=== PATIENT | male | born 1945 | race Caucasian/White ===

== ENCOUNTER 2016-09-28 20:18 | Inpatient (IN) | payer OTHER, MEDICARE ==
[~2016-09-28] VITALS: Ht 170.2 cm; Wt 74.8 kg
--- NOTE | ~2016-09-28 | EKG ---
[address] [place] [address] ELECTROCARDIOGRAM REPORT Name: RADHA RITCHIE Room #: 450-P ADM IN M.R.#: [id number] Admission: 09/28/16 Attend Phys: Marilu Kemp MD Discharge: Date of : 41 Report #: [id number] THIS REPORT FOR: //name// [facility] ED Test Date: 2016-09-28 Test Time: 20:30:13 Pat Name: RADHA RITCHIE Department: Room: [facility] Gender: M Dress Fitter: MZOOK : 1945 Requested By: Cate Monteiro Order Number: [id number] MD: Ivan Vásquez Measurements Intervals [place] Rate: 55 P: 44 ND: 170 QRS: 67 QRSD: 96 T: 64 QT: 442 QTc: 423 Interpretive Statements Sinus bradycardia Otherwise no significant abnormality No previous ECG available for comparison Electronically Signed On 09-29-2016 8:58:11 CDT by Ivan Vásquez [email or web address] <ELECTRONICALLY SIGNED> By: Ivan Vásquez MD, [facility] 09/29/16 0858 2030 29 Ivan Vásquez MD, FACC /EPI
--- NOTE | ~2016-09-28 | EEG ---
[facility] [place] [address] ELECTROENCEPHALOGRAM Name: RADHA RITCHIE Room #: 450-[facility] IN M.R.#: [id number] Admission: 09/28/16 Attend Phys: Marilu Kemp MD Discharge: 09/29/16 Date of : 41 Report #: [id number] THIS REPORT FOR: //name// CC: Marilu Harrell DATE OF SERVICE: 09/29/2016 This patient is being evaluated for the possibility of seizure. EEG was done by placing the electrodes by standard 10-20 system of electrode placement. Both referential and sequential montages were used for recording. Background activity in this patient's EEG is about 11 Hz and 40 microvolts. This is a symmetrical activity. This patient became drowsy that is associated with bilateral slowing and a few vertex sharp waves on both sides. Photic stimulation is unremarkable. Throughout the record, no active epileptiform activity was noticed. IMPRESSION: This patient's EEG does not demonstrate any clear-cut epileptiform activity. It might be mentioned that EEG can be normal in a patient with a seizure disorder. Therefore, clinical correlation is recommended. Thank you very much for this referral. <ELECTRONICALLY SIGNED> By: Maximus Lal MD 10/01/16 1942 1658 1718 Maximus Lal MD /nt
[2016-09-28 20:21] VITALS: BP 153/80
[2016-09-28] MEDS ORDERED: PRIMIDONE50 MG PO (20:41)
[2016-09-28] MEDS ORDERED: LAMICTAL100 MG PO (20:41)
[2016-09-28] MEDS ORDERED: OMEPRAZOLE 20 M20 M1 PO (20:42)
[2016-09-28] MEDS ORDERED: SIMVASTATIN40 MG PO (20:42)
[2016-09-28] MEDS ORDERED: SINGULAIR 10 MG10 M1 PO (20:42)
[2016-09-28] MEDS ORDERED: VITAMIN B-12500 MCG PO (20:43)
[2016-09-28 21:00] LABS: ABSOLUTE NEUTROPHILS 4.6 thou/uL (1.4-8.2); BASOPHILS 0.9 % (0.0-2.0); HEMATOCRIT 42.5 % (42.0-52.0); HEMOGLOBIN 14.5 gm/dL (14.0-18.0); LYMPHOCYTES 27.9 % (24.0-44.0); MCH 28.9 pg (26.0-34.0); MCHC 34.1 g/dL (28.0-37.0); MCV 84.6 fL (80.0-100.0); MONOCYTES 5.5 % (1.0-8.0); PLATELET COUNT 228 thou/uL (150-400); POLYS 62.7 % (36.0-66.0); RBC 5.02 mil/uL (4.50-6.00); RDW 13.2 % (10.5-14.5); WBC 7.4 thou/uL (4.0-11.0)
[2016-09-28 21:02] LABS: MANUAL DIFF NO
[2016-09-28 21:03] LABS: CALCIUM 9.1 mg/dL (8.5-10.1); CREATININE 0.8 mg/dL (0.7-1.3); POTASSIUM 4.3 mmol/L (3.5-5.1)
[2016-09-28 21:14] LABS: APTT 28.9 Seconds (24.5-32.8); PROTIME 10.2 Seconds (9.3-11.4)
[2016-09-28 23:43] VITALS: BP 114/67
[2016-09-29 00:23] VITALS: BP 142/81
[2016-09-29 03:46] VITALS: BP 128/71
[2016-09-29 06:50] LABS: CHOLESTEROL 162 mg/dL (<200); HDL CHOLESTEROL 47 mg/dL (>40); LDL CHOLESTEROL 100 mg/dL (<100); TC:HDL 3.4 Ratio (Not establshd); TRIGLYCERIDE 76 mg/dL (<150); VLDL 15 mg/dL (<40)
[2016-09-29 06:55] LABS: SERUM ASSESSMENT Clear
[2016-09-29 08:40] VITALS: BP 114/65
[2016-09-29 09:14] LABS: TSH 2.032 uIU/mL (0.358-3.740)
[2016-09-29 12:43] VITALS: BP 130/68
[2016-09-29] MEDS ORDERED: ASPIR 8181 MG PO (14:30)
[2016-09-29 15:13] VITALS: BP 130/68
[2016-09-30 02:10] LABS: GLYCOHEMOGLOBIN (HGB A1C) 5.4 % (4.8-5.6)
== END 2016-09-29 17:30 | disposition home or self-care (01) | DRG 66 ==
LOC: ER 20:18 → EROBS 22:56 → 4W 22:56
PROVIDERS: Emergency Medicine; Nurse Practitioner; Psychiatry & Neurology Neurology
DX: I63.9 Cerebral infarction, unspecified (principal); K21.9 Gastro-esophageal reflux disease without esophagitis; E78.5 Hyperlipidemia, unspecified; G62.9 Polyneuropathy, unspecified; F41.9 Anxiety disorder, unspecified; I65.21 Occlusion and stenosis of right carotid artery

== ENCOUNTER → 2017-09-15 | Outpatient (CLI) | payer OTHER, MEDICARE ==
[~2017-09-15] VITALS: Ht 170.2 cm; Wt 72.6 kg
[~2017-09-15] MED LIST: ASPIR 8181 MG PO; LAMICTAL100 MG PO; OMEPRAZOLE 20 M20 M1 PO; PRIMIDONE50 MG PO; PROBIOTIC1 EAC1 PO; PROPRANOLOL 1010 MG PO; PULMICORT FLE180 MCG INH; SIMVASTATIN40 MG PO; SINGULAIR 10 MG10 M1 PO; VENTOLIN HFA 1818 GM INH; VITAMIN B-12500 MCG PO; VITAMINC500 PO
--- NOTE | ~2017-09-15 | S ---
[facility] [place] [address] SURGICAL PATH RPT PROCEDURE Name: RADHA RITCHIE Room #: REG ERYN Jayesh.#: [id number] Admission: 09/15/17 Date of : 41 Discharge: Report #: [id number] Path Case #: [id number] PATHOLOGY REPORT COLLECTION DATE: 09/15/2017 RECEIVED DATE: 09/15/2017 SUBMITTING PHYS: Dr. Edgard Sanchez OTHER PHYS: Dr. Fabian Harrell SPECIMEN(S) RECEIVED: A.Polyp @ ascending colon * * * * * * * * * * * * FINAL DIAGNOSIS: Polyp, at ascending colon, endoscopic biopsy: - Tubular adenoma. - Negative for high grade dysplasia. - Unremarkable mucosa present at cauterized / stalk margin. (IUV:mml; 09/18/2017) PATHOLOGIST: Sue Mills M.D. REPORT ELECTRONICALLY SIGNED BY: Sue Mills M.D. DATE/TIME: 09/18/2017 13:43 * * * * * * * * * * * * GROSS PATHOLOGY: Received in formalin labeled "Radha Ritchie, polyp at ascending colon," is a 0.7 x 0.7 x 0.5 cm polypoid piece of fall soft tissue with a stalk measuring 0.3 cm in length and 0.3 cm in diameter. The margin of the stalk is inked and the tissue is sectioned perpendicular to the margin and submitted in its entirety in cassette A1. (TSD; 09/15/2017) CLINICAL HISTORY: Pre-OP DX: Hx polyps Post-OP DX: Colon polyp INITIAL CPT CODE(S): A; 10356 Professional services performed by [facility] at [facility] [address] [facility] , [place] [address] Technical services performed by [facility] at [address] [place] [address] [address] [facility] [place] [address] SURGICAL PATH RPT PROCEDURE Name: RADHA RITCHIE Room #: REG ERYN Ley#: [id number] Admission: 09/15/17 Date of : 41 Discharge: Report #: [id number] Path Case #: [id number] [address]. [facility] [address] [address] PHONE: [phone] DIRECTOR: Tavon Burks M.D. * * * END OF REPORT * * *
--- NOTE | ~2017-09-15 | P ---
[facility] [place] [address] PROCEDURE REPORT Name: RADHA RITCHIE Room #: REG ERYN Jil#: [id number] Admission: 09/15/17 Attend Phys: Edgard Mcleod Discharge: Date of : 41 Report #: [id number] THIS REPORT FOR: //name// CC: Edgard Harrell DATE OF SERVICE: 09/15/2017 PROCEDURE PERFORMED: Colonoscopy with polypectomy. HISTORY OF PRESENT ILLNESS: The patient is a 72-year-old male with a history of colon polyps. He is here for a 5-year followup. Denies any symptoms. No family history of colon cancer. DESCRIPTION OF PROCEDURE: The risks and benefits of the procedure were explained to the patient, those risks including but not limited to bleeding, perforation, the risk of sedation. He understood these risks and gave informed consent. Sedation was given using propofol per anesthesia. Next, a digital rectal exam was initially performed, which was normal. Next, using a standard Fujinon colonoscope, the scope was placed in the patient's anus and advanced under direct vision to the cecum. The overall prep was excellent. The cecum and ileocecal valve were normal in appearance. In the proximal ascending colon, a few scattered diverticula were noted. Also, an 8 mm partially pedunculated polyp was noted. This was removed by snare cautery. The transverse and descending colon were normal. Multiple diverticula were noted in the sigmoid colon, no evidence of inflammation, otherwise normal. The rectal mucosa was normal. On retroflexion, no abnormalities were noted. The scope was then withdrawn and the procedure terminated. The patient tolerated the procedure well. IMPRESSION: 1. Diverticulosis. 2. Colon polyp. 3. Otherwise, normal colonoscopy. RECOMMENDATIONS: 1. Await biopsy results. 2. Repeat colonoscopy in 5 years. Thank you for allowing me to participate in his care. <ELECTRONICALLY SIGNED> By: Edgard Sanchez MD 09/16/17 0854 [id number] 1209 Edgard Sanchez MD /nt
== END | disposition home or self-care (01) ==
LOC: GI 09-05 13:40
DX: Z09 Encounter for follow-up examination after completed treatment for conditions other than malignant neoplasm (principal); D12.2 Benign neoplasm of ascending colon; K57.30 Diverticulosis of large intestine without perforation or abscess without bleeding; I10 Essential (primary) hypertension; E78.5 Hyperlipidemia, unspecified; J45.909 Unspecified asthma, uncomplicated; K21.9 Gastro-esophageal reflux disease without esophagitis; Z98.890 Other specified postprocedural states; Z86.010 Personal history of colon polyps; Z98.41 Cataract extraction status, right eye; Z98.42 Cataract extraction status, left eye; Z86.73 Personal history of transient ischemic attack (TIA), and cerebral infarction without residual deficits; Z85.46 Personal history of malignant neoplasm of prostate; Z79.82 Long term (current) use of aspirin; Z79.899 Other long term (current) drug therapy
CPT/HCPCS: 62110; 62900

== ENCOUNTER → 2018-03-23 | Outpatient (CLI) | payer OTHER, MEDICARE | LOC: CAT 09:26 | DX: G31.9 Degenerative disease of nervous system, unspecified (principal); I67.9 Cerebrovascular disease, unspecified; J32.2 Chronic ethmoidal sinusitis ==